=== PATIENT | male | born 1970 ===

== ENCOUNTER → 2024-11-03 06:57 | Outpatient (REF) | payer BC, SELFPAY | LOC: RAD 06:57 | PROVIDERS: ATTENDING PHYSICIAN Internal Medicine; FAMILY PHYSICIAN Family Medicine | DX: M62.89 Other specified disorders of muscle (principal); K59.02 Outlet dysfunction constipation | CPT/HCPCS: 74270 ==

== ENCOUNTER 2024-11-10 06:17 | Day surgery (SDC) | payer BC, SELFPAY | END 2024-11-10 12:55 | disposition home or self-care (01) | LOC: GI 06:17 | PROVIDERS: ATTENDING PHYSICIAN Internal Medicine | DX: R19.4 Change in bowel habit (principal); K57.30 Diverticulosis of large intestine without perforation or abscess without bleeding; D12.4 Benign neoplasm of descending colon; Z98.0 Intestinal bypass and anastomosis status | CPT/HCPCS: 45385; 45380; 88305 ==

== ENCOUNTER 2025-01-25 06:28 | Outpatient (RCR) | payer BC, SELFPAY | END 2025-01-25 23:59 | disposition home or self-care (01) | LOC: RPT 06:28 | PROVIDERS: ATTENDING PHYSICIAN Surgery; FAMILY PHYSICIAN Family Medicine | DX: M62.89 Other specified disorders of muscle (principal); K59.02 Outlet dysfunction constipation; Z73.6 Limitation of activities due to disability; K57.32 Diverticulitis of large intestine without perforation or abscess without bleeding; Z98.0 Intestinal bypass and anastomosis status | CPT/HCPCS: 97110; 97140; 97161; 97530 ==

== ENCOUNTER 2025-02-13 07:24 | Outpatient (RCR) | payer BC, SELFPAY | END 2025-02-13 23:59 | disposition home or self-care (01) | LOC: RPT 07:24 | PROVIDERS: ATTENDING PHYSICIAN Surgery; FAMILY PHYSICIAN Family Medicine | DX: M62.89 Other specified disorders of muscle (principal); K59.02 Outlet dysfunction constipation; Z73.6 Limitation of activities due to disability; K57.32 Diverticulitis of large intestine without perforation or abscess without bleeding; Z98.0 Intestinal bypass and anastomosis status | CPT/HCPCS: 97110; 97140 ==